=== PATIENT | male | born 1990 | race Native Hawaiian/Other Pacific Islander ===

== ENCOUNTER 2023-08-19 19:12 | Emergency (ER) | payer OTHER, BC, SELFPAY ==
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
[2023-08-19 19:27] VITALS: BP 158/107; PULSE 82; RESP 18; TEMP 36.2; O2SAT 99
[2023-08-19] MEDS: ACETAMINOPHEN 500 MG TABLET 1000 MG PO (20:43)
[2023-08-19 21:00] VITALS: BP 154/107; PULSE 67; RESP 15; O2SAT 99
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
[2023-08-19] MEDS: KETOROLAC (*BKC) 60 MG/2 ML VIAL IM (21:37)
== END 2023-08-19 22:02 | disposition home or self-care (01) ==
PROVIDERS: Emergency Provider Physician Assistant
DX: S09.90XA Unspecified injury of head, initial encounter (principal); S16.1XXA Strain of muscle, fascia and tendon at neck level, initial encounter; S29.012A Strain of muscle and tendon of back wall of thorax, initial encounter; S39.012A Strain of muscle, fascia and tendon of lower back, initial encounter; M47.816 Spondylosis without myelopathy or radiculopathy, lumbar region; M47.814 Spondylosis without myelopathy or radiculopathy, thoracic region; V49.40XA Driver injured in collision with unspecified motor vehicles in traffic accident, initial encounter
CPT/HCPCS: 70450; 71046; 72125; 72128; 72131; 96372; 99284; A9270; J1885